=== PATIENT | female | born 1975 | race Two or more races ===

== ENCOUNTER 2018-02-27 19:59 | Emergency (ER) | payer OTHER ==
[~2018-02-27] VITALS: Ht 152.4 cm; Wt 68.0 kg
--- NOTE | 2018-02-27 20:12 | NUR ---
PT AMBULATORY TO ER BED 13. BIB FAMILY C/O NV X 2 WEEKS. PT PLACED IN GOWN AND ON RECOVERY ROOM RN. VSS/RESP EVEN UNLABORED/NAD NOTED/SKIN WARM AND DRY/AFEBRILE/AOX4. AWAITING MD CASTANON.
[2018-02-27 20:46] LABS: APPEARANCE,URINE Clear (CLEAR); BILIRUBIN,URINE Negative (NEGATIVE); BLOOD, URINE Negative Ery/uL (NEGATIVE); COLOR,URINE Yellow (YELLOW); KETONES,URINE Negative (NEGATIVE); LEUKOCYTE ESTERASE ,URINE Trace (NEGATIVE); NITRITE, URINE Negative (NEGATIVE); PROTEIN,URINE Negative (NEGATIVE); UGLUCOSE Negative (NEGATIVE)
[2018-02-27 21:10] LABS: SQUAMOUS EPITHELIAL CELL,UR Moderate /HPF (None Seen)
[2018-02-27 21:11] LABS: BACTERIA,URINE Few /HPF (None Seen); RBC,URINE 0-2 /HPF (0-2)
--- NOTE | 2018-02-27 21:51 | NUR ---
Patient discharged to home in stable condition. Written and verbal after care instructions given. Patient verbalizes understanding of instruction. Patient ambulatory with a steady gait.
[2018-02-27 21:52] VITALS: BP 146/84
== END 2018-02-27 21:53 | disposition home or self-care (01) ==
LOC: ER 20:01
DX: R11.2 Nausea with vomiting, unspecified (principal); E11.9 Type 2 diabetes mellitus without complications; I10 Essential (primary) hypertension
CPT/HCPCS: 36415; 81000-TC; 84702-TC; 84703-TC; A4606; Z7610

== ENCOUNTER 2018-12-17 13:15 | Inpatient (IN) | payer MEDICAID, OTHER ==
[2018-12-17] VITALS: BP 92/44
[~2018-12-17] VITALS: Ht 152.4 cm; Wt 74.8 kg
[2018-12-17 13:43] LABS: BASOPHILS % (AUTO) 0.1 % (0.0-2.0); HEMATOCRIT 30 % (33-45); HEMOGLOBIN 9.3 g/dL (11.5-14.8); LYMPHOCYTES # (AUTO) 1.1 /CMM (0.8-4.8); LYMPHOCYTES % (AUTO) 4.8 % (20.0-44.0); MEAN CORPUSCULAR HGB CONC 31 g/dl (31.0-36.0); MEAN CORPUSCULAR VOLUME 70 fL (82-100); MONOCYTES # (AUTO) 0.5 /CMM (0.1-1.30); MONOCYTES % (AUTO) 2.1 % (2.0-12.0); NEUTROPHILS # (AUTO) 20.8 /CMM (1.8-8.9); PLATELET COUNT (AUTO) 315 /CMM (150-450); RED BLOOD CELL COUNT(AUTO) 4.29 MIL/uL (4.0-5.2); WHITE BLOOD COUNT (AUTO) 22.4 K/uL (4.3-11.0)
[2018-12-17 13:45] LABS: CALCIUM, SERUM 8.6 mg/dL (8.5-10.1); CREATININE 1.1 mg/dL (0.6-1.3); POTASSIUM 2.9 mmol/L (3.5-5.1)
[2018-12-17] MEDS ORDERED: CEFTRIAXONE 1GM BAG (ER ONLY) 50 ML IV ONE ×2 (13:53→14:00)
[2018-12-17] MEDS ORDERED: POTASSIUM CHLORIDE 20 MEQ TAB.PRT.SR PO ONE ×2 (13:54→14:00)
[2018-12-17] MEDS ORDERED: AZITHROMYCIN 500 MG in IV D5W 250 ML IV ONE (14:00)
[2018-12-17] MEDS ORDERED: IV NS 0.9% 1,000 ML BAG IV ONE (14:00)
[2018-12-17] MEDS ORDERED: ASPIRIN 325 MG TABLET PO ONE (14:00)
[2018-12-17] MEDS ORDERED: Magnesium 1GM/D5W 100ML PREMIX PIGGYBACK IV ONE (14:00)
[2018-12-17 14:06] LABS: ALANINE AMINOTRANSFERASE 24 U/L (12-78); ALBUMIN 3.1 g/dL (3.4-5.0); ALKALINE PHOSPHATASE 76 U/L (46-116); ASPARTATE AMINOTRANSFERASE 13 U/L (15-37); BILIRUBIN,DIRECT 0.1 mg/dL (0.0-0.2); BILIRUBIN,TOTAL 0.5 mg/dL (0.2-1.0); TOTAL PROTEIN, SERUM 7.9 g/dL (6.4-8.2)
[2018-12-17] MEDS ORDERED: ASPIRIN 325 MG TABLET ONE (14:08)
[2018-12-17] MEDS ORDERED: Magnesium 1GM/D5W 100ML PREMIX 100 ML IV ONE (14:08)
[2018-12-17] MEDS ORDERED: HYDROCODONE/APAP 10/325MG 1 EA TABLET PO PRN (14:30)
[2018-12-17] MEDS ORDERED: ALBUTEROL FS 2.5 MG/0.5 ML VIAL.NEB NEB PRN (14:30)
[2018-12-17] MEDS ORDERED: ACETAMINOPHEN 325 MG TABLET PO PRN (14:30)
[2018-12-17] MEDS ORDERED: MAGNESIUM HYDROXIDE 30 ML UDC PO PRN (14:30)
[2018-12-17] MEDS ORDERED: IPRATROPIUM NEB FS 0.5 MG/2.5 ML AMPUL.NEB NEB PRN (14:30)
[2018-12-17] MEDS ORDERED: GUAIFENESIN LA 600 MG TABLET.SA PO PRN (14:30)
[2018-12-17] MEDS ORDERED: MAG HYDROX/AL HYDROX/SIMETH 30 ML UDC PO PRN (14:30)
[2018-12-17] MEDS ORDERED: NITROGLYCERIN 0.4 MG/TAB BOTTLE SL ONE (14:30)
[2018-12-17] MEDS ORDERED: ONDANSETRON HCL/PF 4 MG/2 ML VIAL IVP PRN (14:30)
[2018-12-17] MEDS ORDERED: HYDROCODONE/APAP 5/325MG 1 EACH TABLET PO PRN (14:30)
[2018-12-17] MEDS ORDERED: ZOLPIDEM TARTRATE 5 MG TABLET PO PRN (14:30)
[2018-12-17] MEDS ORDERED: DEXTROSE 50%-WATER 50 ML DISP.SYRIN IV PRN (15:00)
[2018-12-17 15:27] LABS: APPEARANCE,URINE Clear (CLEAR); BILIRUBIN,URINE Negative (NEGATIVE); BLOOD, URINE Small Ery/uL (NEGATIVE); COLOR,URINE Yellow (YELLOW); KETONES,URINE Negative (NEGATIVE); LEUKOCYTE ESTERASE ,URINE Negative (NEGATIVE); NITRITE, URINE Negative (NEGATIVE); PROTEIN,URINE Trace mg/dl (NEGATIVE); UGLUCOSE 250 MG/DL mg/dL (NEGATIVE); UROBILINOGEN,URINE 0.2 EU/dL (0.2)
[2018-12-17 15:43] LABS: BACTERIA,URINE Rare /HPF (None Seen); SQUAMOUS EPITHELIAL CELL,UR Few /HPF (None Seen); WBC,URINE 0-2 /HPF (0-3)
[2018-12-17 16:00] VITALS: BP 105/65
[2018-12-17] MEDS: PANTOPRAZOLE 40 MG TABLET.DR PO SCH (16:30)
[2018-12-17] MEDS: BLOOD SUGAR DIAGNOSTIC 1 EACH STRIP IN SCH ×2 (16:34→22:13)
[2018-12-17] MEDS: IV NS 0.9% 1,000 ML IV PRN (17:00)
[2018-12-17 20:00] VITALS: BP 109/60
[2018-12-18] VITALS: BP 92/44
[2018-12-18 04:00] VITALS: BP 119/64
[2018-12-18 07:03] LABS: THYROID STIMULATING HORMONE 1.75 uIU/mL (0.358-3.74)
[2018-12-18 07:06] LABS: BASOPHILS % (AUTO) 0.1 % (0.0-2.0); CALCIUM, SERUM 7.9 mg/dL (8.5-10.1); CREATININE 0.7 mg/dL (0.6-1.3); EOSINOPHILS % (AUTO) 0.1 % (0.0-6.0); HEMATOCRIT 26 % (33-45); HEMOGLOBIN 8.1 g/dL (11.5-14.8); LYMPHOCYTES # (AUTO) 1.3 /CMM (0.8-4.8); LYMPHOCYTES % (AUTO) 7.9 % (20.0-44.0); MAGNESIUM 2.4 mg/dL (1.8-2.4); MEAN CORPUSCULAR HGB CONC 32 g/dl (31.0-36.0); MEAN CORPUSCULAR VOLUME 70 fL (82-100); MONOCYTES # (AUTO) 0.4 /CMM (0.1-1.30); MONOCYTES % (AUTO) 2.4 % (2.0-12.0); NEUTROPHILS # (AUTO) 14.3 /CMM (1.8-8.9); NEUTROPHILS % (AUTO) 89.5 % (43.0-81.0); PHOSPHORUS 1.1 mg/dL (2.5-4.9); PLATELET COUNT (AUTO) 259 /CMM (150-450); POTASSIUM 3.5 mmol/L (3.5-5.1)
[2018-12-18] MEDS: BLOOD SUGAR DIAGNOSTIC 1 EACH STRIP IN SCH ×4 (07:55→22:19)
[2018-12-18 08:00] VITALS: BP 110/36
[2018-12-18] MEDS: PANTOPRAZOLE 40 MG TABLET.DR PO SCH (08:10)
[2018-12-18] MEDS: ASPIRIN 81 MG TAB.CHEW PO SCH (08:10)
[2018-12-18] MEDS: CEFTRIAXONE 1 G in IV D5W 50 ML IV SCH (09:45)
[2018-12-18] MEDS ORDERED: AZITHROMYCIN 500 MG in IV D5W 250 ML IV SCH (10:00)
[2018-12-18] MEDS: AZITHROMYCIN 250 MG TABLET PO SCH (10:25)
[2018-12-18 11:10] LABS: IRON, SERUM 8 ug/dl (50-175); TOTAL IRON BINDING CAPACITY 281 ug/dl (250-450)
[2018-12-18 11:22] LABS: FERRITIN 125 ng/mL (8-388)
[2018-12-18] MEDS: INSULIN REGULAR, HUMAN 100 UNIT/ML 3 ML VIAL SQ PRN ×2 (13:22→22:19)
[2018-12-18] MEDS ORDERED: K PHOS NEUTRAL 250 MG TABLET PO ONE (13:30)
[2018-12-18 16:00] VITALS: BP 102/44
[2018-12-18] MEDS ORDERED: LEVO50TA8 PO (17:46)
[2018-12-18] MEDS ORDERED: ASPI-1169 PO (17:46)
[2018-12-18] MEDS ORDERED: LISI-603 PO (17:46)
[2018-12-18] MEDS ORDERED: ATOR10TA PO (17:46)
[2018-12-18] MEDS ORDERED: METF-440 PO (17:46)
[2018-12-18] MEDS ORDERED: SERT100T12 PO (17:46)
[2018-12-18 20:00] VITALS: BP 110/61
[2018-12-18] MEDS: IV NS 0.9% 1,000 ML IV PRN (22:22)
[2018-12-19 04:00] VITALS: BP_SYST 118; BP_SYST 122; BP_DIAS 69; BP_DIAS 73
[2018-12-19 06:54] LABS: BASOPHILS # (AUTO) 0.1 /CMM (0.0-0.2); BASOPHILS % (AUTO) 0.6 % (0.0-2.0); EOSINOPHILS % (AUTO) 2.2 % (0.0-6.0); HEMATOCRIT 25 % (33-45); HEMOGLOBIN 8.1 g/dL (11.5-14.8); LYMPHOCYTES # (AUTO) 1.8 /CMM (0.8-4.8); LYMPHOCYTES % (AUTO) 18.2 % (20.0-44.0); MEAN CORPUSCULAR HGB CONC 32 g/dl (31.0-36.0); MEAN CORPUSCULAR VOLUME 69 fL (82-100); MONOCYTES # (AUTO) 0.4 /CMM (0.1-1.30); MONOCYTES % (AUTO) 3.8 % (2.0-12.0); NEUTROPHILS # (AUTO) 7.3 /CMM (1.8-8.9); NEUTROPHILS % (AUTO) 75.2 % (43.0-81.0); PLATELET COUNT (AUTO) 302 /CMM (150-450); RED BLOOD CELL COUNT(AUTO) 3.63 MIL/uL (4.0-5.2); WHITE BLOOD COUNT (AUTO) 9.7 K/uL (4.3-11.0)
[2018-12-19 07:13] LABS: CALCIUM, SERUM 7.9 mg/dL (8.5-10.1); CREATININE 0.7 mg/dL (0.6-1.3); PHOSPHORUS 1.7 mg/dL (2.5-4.9); POTASSIUM 3.6 mmol/L (3.5-5.1)
[2018-12-19] MEDS: BLOOD SUGAR DIAGNOSTIC 1 EACH STRIP IN SCH (07:30)
[2018-12-19 08:00] VITALS: BP 133/78
[2018-12-19] MEDS: PANTOPRAZOLE 40 MG TABLET.DR PO SCH (08:41)
[2018-12-19] MEDS: CEFTRIAXONE 1 G in IV D5W 50 ML IV SCH (08:41)
[2018-12-19] MEDS: ASPIRIN 81 MG TAB.CHEW PO SCH (08:42)
[2018-12-19 08:55] VITALS: BP 133/78
[2018-12-19] MEDS ORDERED: ASPIRIN 81 MG TAB.CHEW PO SCH (09:00)
[2018-12-19] MEDS: AZITHROMYCIN 250 MG TABLET PO SCH (09:00)
[2018-12-19] MEDS ORDERED: SERTRALINE HCL 25 MG TABLET PO SCH (09:00)
[2018-12-19] MEDS ORDERED: METFORMIN 500 MG TABLET PO SCH (09:00)
[2018-12-19] MEDS ORDERED: LISINOPRIL (20MG) 20 MG TABLET PO SCH (09:00)
[2018-12-19] MEDS ORDERED: ATORVASTATIN 10 MG TABLET PO SCH (22:00)
[2018-12-20] MEDS ORDERED: LEVOTHYROXINE SODIUM 50 MCG TABLET PO SCH (07:30)
== END 2018-12-19 10:40 | disposition home or self-care (01) | DRG 720 ==
LOC: ER 13:17 → TELE1 14:21 → MEDSG1 12-18 11:09
PROVIDERS: ADMIT Nurse Practitioner Acute Care; ATTEND Nurse Practitioner Acute Care
DX: A41.9 Sepsis, unspecified organism (principal); I21.A1 Myocardial infarction type 2; J15.9 Unspecified bacterial pneumonia; E87.2 Acidosis; J18.9 Pneumonia, unspecified organism; E87.1 Hypo-osmolality and hyponatremia; E86.1 Hypovolemia; D50.9 Iron deficiency anemia, unspecified; E11.9 Type 2 diabetes mellitus without complications; E87.6 Hypokalemia; I10 Essential (primary) hypertension; F32.9 Major depressive disorder, single episode, unspecified; E66.9 Obesity, unspecified; Z68.32 Body mass index [BMI] 32.0-32.9, adult; E03.9 Hypothyroidism, unspecified; R09.02 Hypoxemia; Z80.3 Family history of malignant neoplasm of breast
CPT/HCPCS: 36415; 71045-TC; 80048-TC; 80061-TC; 80076-TC; 81000-TC; 82728-TC; 82962-TC; 83540-TC; 83605-TC; 83735-TC; 84100-TC; 84443-TC; 84484-TC; 85025-TC; 85730-TC; 87040-TC; 87081-TC; 87086-TC; 93307-TC; G0378; J0456; J0696; J1815; J3475; J3490; J7030; J7040; J7060

== ENCOUNTER 2019-02-17 23:32 | Emergency (ER) | payer OTHER ==
[~2019-02-17] VITALS: Ht 152.4 cm; Wt 75.7 kg
[~2019-02-17 23:32] MED LIST: ASPI-1169 PO; ATOR10TA PO; LEVO50TA8 PO; LISI-603 PO; METF-440 PO; SERT100T12 PO
[2019-02-17 23:58] VITALS: BP 149/84
--- NOTE | 2019-02-18 01:13 | NUR ---
RADIOLOGY AT BEDSIDE FOR CXR
== END 2019-02-18 01:37 | disposition home or self-care (01) ==
LOC: ER 23:35
DX: J40 Bronchitis, not specified as acute or chronic (principal); E11.9 Type 2 diabetes mellitus without complications; I10 Essential (primary) hypertension; F32.9 Major depressive disorder, single episode, unspecified; Z79.82 Long term (current) use of aspirin
CPT/HCPCS: 71045-TC

== ENCOUNTER 2019-04-14 12:19 | Emergency (ER) | payer OTHER ==
[~2019-04-14] VITALS: Ht 165.1 cm; Wt 83.9 kg
[2019-04-14 12:36] VITALS: BP 138/85
== END 2019-04-14 13:45 | disposition home or self-care (01) ==
LOC: ER 12:20
DX: S63.693A Other sprain of left middle finger, initial encounter (principal); I10 Essential (primary) hypertension; E11.9 Type 2 diabetes mellitus without complications; F32.9 Major depressive disorder, single episode, unspecified; Z79.82 Long term (current) use of aspirin; X58.XXXA Exposure to other specified factors, initial encounter; Y93.89 Activity, other specified; Y92.89 Other specified places as the place of occurrence of the external cause; Y99.8 Other external cause status
CPT/HCPCS: 73140-TC

== ENCOUNTER 2019-05-21 18:30 | Emergency (ER) | payer OTHER ==
[~2019-05-21] VITALS: Ht 152.4 cm; Wt 75.7 kg
--- NOTE | 2019-05-21 19:11 | NUR ---
AT THE BED SIDE
[2019-05-21] MEDS ORDERED: HYDROCODONE/APAP 10/325MG 1 EA TABLET ONE (19:21)
--- NOTE | 2019-05-21 19:25 | NUR ---
X.RAY TECH AT THE BED SIDE
[2019-05-21] MEDS ORDERED: HYDROCODONE/APAP 10/325MG 1 EA TABLET PO ONE (19:30)
--- NOTE | 2019-05-21 19:35 | NUR ---
URINE COLLECTED AND SENT TO THE LAB
[2019-05-21 19:44] LABS: APPEARANCE,URINE Clear (CLEAR); BILIRUBIN,URINE Negative (NEGATIVE); BLOOD, URINE Small Ery/uL (NEGATIVE); COLOR,URINE Yellow (YELLOW); KETONES,URINE Trace (NEGATIVE); LEUKOCYTE ESTERASE ,URINE Trace (NEGATIVE); NITRITE, URINE Negative (NEGATIVE); PROTEIN,URINE Negative (NEGATIVE); UGLUCOSE Negative (NEGATIVE); UROBILINOGEN,URINE 0.2 EU/dL (0.2)
[2019-05-21 19:48] LABS: BACTERIA,URINE Few /HPF (None Seen); SQUAMOUS EPITHELIAL CELL,UR Few /HPF (None Seen)
--- NOTE | 2019-05-21 21:44 | NUR ---
AT THE BED SIDE
--- NOTE | 2019-05-21 22:03 | NUR ---
Patient discharged to home in stable condition. Rx and Written and verbal after care instructions given. Patient verbalizes understanding of instruction. WILL GIVE HER RIDE.
[2019-05-21 22:04] VITALS: BP 111/55
== END 2019-05-21 22:05 | disposition home or self-care (01) ==
LOC: ER 18:31
DX: K80.20 Calculus of gallbladder without cholecystitis without obstruction (principal); I10 Essential (primary) hypertension; E11.9 Type 2 diabetes mellitus without complications; F32.9 Major depressive disorder, single episode, unspecified; Z79.899 Other long term (current) drug therapy; Z79.82 Long term (current) use of aspirin; Z79.84 Long term (current) use of oral hypoglycemic drugs
CPT/HCPCS: 71100-TC; 81000-TC; 84703-TC

== ENCOUNTER 2019-10-30 17:04 | Emergency (ER) | payer OTHER ==
[~2019-10-30] VITALS: Ht 152.4 cm; Wt 68.0 kg
[2019-10-30 17:11] VITALS: BP 141/84
--- NOTE | 2019-10-30 17:56 | NUR ---
Patient discharged to home in stable condition. Written and verbal after care instructions given. Patient verbalizes understanding of instruction.
== END 2019-10-30 17:56 | disposition home or self-care (01) ==
LOC: ER 17:10
DX: H10.12 Acute atopic conjunctivitis, left eye (principal); I10 Essential (primary) hypertension; E11.9 Type 2 diabetes mellitus without complications; Z76.0 Encounter for issue of repeat prescription; Z79.82 Long term (current) use of aspirin; Z79.899 Other long term (current) drug therapy

== ENCOUNTER 2020-05-20 20:21 | Emergency (ER) | payer OTHER ==
[~2020-05-20] VITALS: Ht 152.4 cm; Wt 80.7 kg
[2020-05-20 20:39] VITALS: BP 149/94
--- NOTE | 2020-05-20 21:09 | NUR ---
Patient discharged to home in stable condition. Written and verbal after care instructions given. Patient verbalizes understanding of instruction.
== END 2020-05-20 21:14 | disposition home or self-care (01) ==
LOC: ER 20:22
DX: Z76.0 Encounter for issue of repeat prescription (principal); I10 Essential (primary) hypertension; E11.9 Type 2 diabetes mellitus without complications; F32.9 Major depressive disorder, single episode, unspecified; Z79.899 Other long term (current) drug therapy

== ENCOUNTER 2020-09-20 19:29 | Emergency (ER) | payer OTHER ==
[~2020-09-20] VITALS: Ht 152.4 cm; Wt 80.7 kg
--- NOTE | 2020-09-20 19:32 | NUR ---
PT AAOX4. AMBULATORY WITH STEADY GAIT. BIBSELF C/O R CHEST PAIN RADIATIONG TO R SCAPULA X1 [employer]. PT STATING IT IS A 5/10, WOULD LIKE TO EVALUATE IF IT IS "ANXIETY"
--- NOTE | 2020-09-20 19:49 | NUR ---
LEGAL AIDE AT BEDSIDE
[2020-09-20 19:55] LABS: BASOPHILS # (AUTO) 0.1 /CMM (0.0-0.2); BASOPHILS % (AUTO) 0.9 % (0.0-2.0); EOSINOPHILS % (AUTO) 2.6 % (0.0-6.0); HEMATOCRIT 39 % (33-45); HEMOGLOBIN 12.8 g/dL (11.5-14.8); LYMPHOCYTES # (AUTO) 2.4 /CMM (0.8-4.8); LYMPHOCYTES % (AUTO) 28.7 % (20.0-44.0); MEAN CORPUSCULAR HGB CONC 33 g/dl (31.0-36.0); MEAN CORPUSCULAR VOLUME 83 fL (82-100); MONOCYTES # (AUTO) 0.5 /CMM (0.1-1.30); NEUTROPHILS # (AUTO) 5.3 /CMM (1.8-8.9); NEUTROPHILS % (AUTO) 61.8 % (43.0-81.0); PLATELET COUNT (AUTO) 302 /CMM (150-450); RED BLOOD CELL COUNT(AUTO) 4.71 MIL/uL (4.0-5.2); WHITE BLOOD COUNT (AUTO) 8.5 K/uL (4.3-11.0)
[2020-09-20 20:15] LABS: CALCIUM, SERUM 9.4 mg/dL (8.5-10.1); CARBON DIOXIDE 24 mmol/L (21-32); CHLORIDE 102 mmol/L (98-107); CREATININE 0.9 mg/dL (0.6-1.3); GLUCOSE 120 mg/dL (74-106); POTASSIUM 3.6 mmol/L (3.5-5.1); SODIUM SERUM 138 mmol/L (136-145); UREA NITROGEN, BLOOD 21 mg/dL (7-18)
--- NOTE | 2020-09-20 20:17 | NUR ---
PT RESTING COMFORTABLY.
[2020-09-20 20:25] LABS: ALANINE AMINOTRANSFERASE 73 U/L (12-78); ALKALINE PHOSPHATASE 95 U/L (46-116); ASPARTATE AMINOTRANSFERASE 38 U/L (15-37); B-TYPE NATRIURETIC PEPTIDE 50 PG/ML (0-125); BILIRUBIN,DIRECT 0.1 mg/dL (0.0-0.2); BILIRUBIN,TOTAL 0.3 mg/dL (0.2-1.0); TOTAL PROTEIN, SERUM 8.4 g/dL (6.4-8.2)
--- NOTE | 2020-09-20 20:39 | NUR ---
Patient discharged to home in stable condition. Written and verbal after care instructions given. Patient verbalizes understanding of instruction and RX. Pt denies CP. Ambulate out of E.D. vss.
[2020-09-20 20:40] VITALS: BP 121/61
== END 2020-09-20 20:40 | disposition home or self-care (01) ==
LOC: ER 19:33
DX: R07.89 Other chest pain (principal); I10 Essential (primary) hypertension; E78.5 Hyperlipidemia, unspecified; E78.00 Pure hypercholesterolemia, unspecified; E11.9 Type 2 diabetes mellitus without complications; Z79.82 Long term (current) use of aspirin; Z79.899 Other long term (current) drug therapy; Z79.84 Long term (current) use of oral hypoglycemic drugs
CPT/HCPCS: 36415; 71045-TC; 80048-TC; 80076-TC; 83880; 84484-TC; 85025-TC

== ENCOUNTER 2022-11-05 20:56 | Emergency (ER) | payer OTHER ==
[~2022-11-05] VITALS: Ht 160 cm; Wt 70.3 kg
[~2022-11-05 20:56] MED LIST changes: -LISI-603 PO; +LISI20TA30 PO
[2022-11-05 22:02] VITALS: BP 142/91
--- NOTE | 2022-11-05 23:53 | NUR ---
Patient discharged to home in stable condition. Written and verbal after care instructions given. Patient verbalizes understanding of instruction.
== END 2022-11-05 23:54 | disposition home or self-care (01) ==
LOC: ER 20:59
DX: J06.9 Acute upper respiratory infection, unspecified (principal); Z20.822 Contact with and (suspected) exposure to COVID-19; R03.0 Elevated blood-pressure reading, without diagnosis of hypertension
CPT/HCPCS: 99283; 87426; 87804 ×2; 87880; C9803; 86403-TC